=== PATIENT | female | born 1950 | race Caucasian/White ===

== ENCOUNTER 2023-08-10 13:28 | Outpatient (CLI) | payer OTHER | END 2023-08-10 13:33 | disposition home or self-care (01) | LOC: TOM 13:28 | PROVIDERS: ATTEND Internal Medicine Gastroenterology | DX: K63.5 Polyp of colon (principal) ==

== ENCOUNTER 2023-11-15 07:27 | Outpatient (CLI) | payer OTHER | END 2023-11-15 07:34 | disposition home or self-care (01) | LOC: SONOGRAMA 07:27 | DX: E04.1 Nontoxic single thyroid nodule (principal) ==